=== PATIENT | female | born 1955 | race Caucasian/White ===

== ENCOUNTER → 2019-02-26 | Outpatient (CLI) | payer OTHER ==
--- NOTE | 2019-02-26 12:26 | RADIOLOGY IMAGING REPORT ---
FACILITY: [facility] PATIENT NAME: Jade Lawrence : 1955 MR: [id number] V: [id number] EXAM DATE: ORDERING PHYSICIAN: KARON ADAMS TECHNOLOGIST: Location: [facility] - [place] Patient: Jade Lawrence : 1955 Visit/Account:[id number] Date of Sevice: 02/26/2019 DEXA Scan Clinical history: Osteoporosis screening. Comparison: 11/06/2009. LUMBAR SPINE: Bone mineral density (BMD) measured in the lumbar spine correlates with a T-score of -0.6 and a Z-sco re of -0.1 which is normal as defined by the World Health Organization. The corresponding risk of f racture in the lumbar spine is not increased compared with a young adult reference population. Lumb ar spine bone density has increased by 2.0% compared to previous. Note that degenerative changes may falsely increase bone density. LEFT FEMORAL NECK: Bone mineral density (BMD) measured in the femoral neck correlates with a T-score of -0.7 and a Z-sco re of 0.0 which is normal as defined by the World Health Organization. Bone mineral density (BMD) measured in the femoral neck region is 0.941 g/cm2. LEFT TOTAL HIP: Total hip bone mineral density (BMD) correlates with a T-score of -0.1 and a Z-score of 0.3 which is normal as defined by the World Health Organization. Total hip bone density has decreased by 1.5% co mpared to previous. The corresponding risk of fracture in the hip is not increased compared with a young adult reference population. IMPRESSION: 1. Lumbar spine: Normal bone density. Lumbar spine bone density has increased by 2.0% compared to previous. 2. Left femoral neck: Normal bone density. 3. Left femoral neck: Bone Mineral Density is 0.941 g/cm2. 4. Left total hip: Normal bone density. Total hip bone density has decreased by 1.5% compared to p revious. FRAX WHO Fracture Risk Assessment Tool link: <http://www.shef.ac.uk/FRAX/tool.jsp?locationValue=9> PLEASE NOTE: 1) The World Health Organization defines low BMD as follows: T-score Normal > -1 Osteopenia < -1 and > -2.5 Osteoporosis < -2.5 without fractures Established osteoporosis < -2.5 with fractures 2) In general, you may wish to consider: Diagnosis Treatment Follow-up DEXA Normal BMD Prevention 2-3 years Osteopenia Prevention/therapy 1-2 years Osteoporosis Therapy Yearly 3) Fracture risk estimated from the T-score is more accurate for vertebral fractures (often spontane ous) than for hip fractures. Report Dictated By: Haroon Rodriguez MD at 02/26/2019 12:19 PM Report E-Signed By: Haroon Rodriguez MD at 02/26/2019 12:21 PM WSN:[email or web address]
--- NOTE | 2019-02-27 10:19 | RADIOLOGY IMAGING REPORT ---
FACILITY: [facility] - [place] PATIENT NAME: CANELO GIRON : [id number] MR: [id number] V: [id number] EXAM DATE: [id number] ORDERING PHYSICIAN: KARON ADAMS TECHNOLOGIST: Laila Zuniga PROCEDURE: BILATERAL DIGITAL SCREENING MAMMOGRAM WITH CAD ASSISTED INTERPRETATION & 3D TOMOSYNTHESIS REASON FOR STUDY: Screening. COMPARISON: [facility]. VIEWS OBTAINED: 2D & 3D full field CC & MLO. BREAST DENSITY: Scattered fibroglandular tissue is present in both breasts. MAMMOGRAM FINDINGS: No masses of suspicious calcifications. IMPRESSION: BIRADS 1: Negative. DIAGNOSTIC CATEGORY 1--NEGATIVE. RECOMMENDATIONS: ROUTINE MAMMOGRAM AND CLINICAL EVALUATION IN 1 YEAR. Dictated by: Haroon Rodriguez M.D. on 02/26/2019 at 14:26 Transcribed by: AGUSTÍN on 02/26/2019 at 14:33 Approved by: Cyndi Chaidez M.D. on 02/27/2019 at 10:18 [facility]
== END ==
LOC: MAMO 00:33
PROVIDERS: ATTEND Nurse Practitioner Family
DX: Z12.31 Encounter for screening mammogram for malignant neoplasm of breast (principal); Z78.0 Asymptomatic menopausal state
CPT/HCPCS: 77063; 77067; 77080